=== PATIENT | male | born 1975 | race Hispanic/Latino ===

== ENCOUNTER → 2018-12-28 | Outpatient (CLI) | payer BC | END | disposition home or self-care (01) | LOC: SHCH 15:25 | PROVIDERS: ATTEND Internal Medicine Cardiovascular Disease | DX: R94.31 Abnormal electrocardiogram [ECG] [EKG] (principal) | CPT/HCPCS: 93306 ==

== ENCOUNTER → 2019-01-16 | Outpatient (CLI) | payer BC | END | disposition home or self-care (01) | LOC: RAH 07:01 | PROVIDERS: ATTEND Family Medicine | DX: R55 Syncope and collapse (principal) | CPT/HCPCS: 70551 ==

== ENCOUNTER → 2019-07-27 | Outpatient (CLI) | payer BC | END | disposition home or self-care (01) | LOC: SHCH 14:52 | PROVIDERS: ATTEND Internal Medicine Cardiovascular Disease | DX: I51.7 Cardiomegaly (principal); I50.22 Chronic systolic (congestive) heart failure | CPT/HCPCS: 93306 ==

== ENCOUNTER 2021-12-09 08:51 | Emergency (ER) | payer BC, OTHER ==
[~2021-12-09] VITALS: Ht 177.8 cm; Wt 99.8 kg
[2021-12-09] MEDS ORDERED: CYCLOBENZAPRINE HCL 10 MG TABLET ONE (09:16)
[2021-12-09] MEDS ORDERED: IBUPROFEN 600 MG TABLET ONE (09:16)
[2021-12-09] MEDS ORDERED: IBUP-2070 PO (09:22)
[2021-12-09] MEDS ORDERED: CYCL-309 PO (09:22)
[2021-12-09] MEDS ORDERED: CYCLOBENZAPRINE HCL 10 MG TABLET PO SCH (09:30)
[2021-12-09] MEDS ORDERED: IBUPROFEN 600 MG TABLET PO SCH (09:30)
[2021-12-09 09:50] VITALS: BP 148/92
== END 2021-12-09 09:52 | disposition home or self-care (01) ==
LOC: EDH 08:51
DX: M25.561 Pain in right knee (principal); M25.551 Pain in right hip; M25.522 Pain in left elbow; I10 Essential (primary) hypertension; V49.49XA Driver injured in collision with other motor vehicles in traffic accident, initial encounter; Y93.89 Activity, other specified; Y92.89 Other specified places as the place of occurrence of the external cause; Y99.8 Other external cause status